=== PATIENT | female | born 1955 | race Caucasian/White ===

== ENCOUNTER → 2019-09-07 | Emergency (ER) | payer MEDICAID, OTHER ==
[~2019-09-07] VITALS: Ht 152.4 cm; Wt 49.9 kg
[~2019-09-07] MED LIST: ALBUTEROL SULF 2.5 MG/0.5ML(0.5%) NEB SOLN NEB ONE; Acetam/CODEINE 120mg/12mg per 5mL UD PO ONE; IPRATROPIUM BROM 0.5 MG/2.5ML INH SOL NEB ONE; ONDANSETRON HCL 4 MG/2 ML VIAL IM ONE; cefTRIAXone SOD 1,000 MG VL IM ONE; methylPREDNISolone SOD SUCC 125 MG/2 ML VL IM ONE
[2019-09-07 20:37] VITALS: BP 132/63
== END | disposition home or self-care (01) ==
LOC: ER 20:21
DX: B34.9 Viral infection, unspecified (principal); J40 Bronchitis, not specified as acute or chronic
CPT/HCPCS: 71046; 94640; 96372; 99284; J0696; J2405; J2930; J7611; J7644

== ENCOUNTER 2019-10-14 14:29 | Emergency (ER) | payer MEDICAID ==
[~2019-10-14] VITALS: Ht 152.4 cm; Wt 56.7 kg
[2019-10-14 15:51] VITALS: BP 128/72
== END 2019-10-14 15:53 | disposition home or self-care (01) ==
LOC: ER 14:29
DX: J01.00 Acute maxillary sinusitis, unspecified (principal); F17.210 Nicotine dependence, cigarettes, uncomplicated
CPT/HCPCS: 71046

== ENCOUNTER 2021-01-19 17:30 | Emergency (ER) | payer MEDICARE, MEDICAID ==
[~2021-01-19] VITALS: Ht 152.4 cm; Wt 53.5 kg
[2021-01-19 21:39] LABS: Basophils # (auto) 0.1 10 ^3/uL (0-0.2); Basophils % (auto) 1.7 % (0.0-2.0); Eosinophils # (auto) 0.1 10 ^3/uL (0-0.8); Eosinophils % (auto) 2.2 % (0.0-7.0); Hematocrit 37.7 % (36.0-46.0); Lymphocytes # (auto) 2.1 10 ^3/uL (0.4-5.4); Lymphocytes % (auto) 32.1 % (10.0-50.0); Mean Corpuscular Hemoglobin 29.5 pg (28.0-32.0); Mean Corpuscular Hgb Conc. 34.6 g/dL (32.0-36.0); Mean Corpuscular Volume 85.4 fL (80.0-100.0); Monocytes # (auto) 0.4 10 ^3/uL (0-1.3); Neutrophils # (auto) 3.9 10 ^3/uL (1.6-8.6); Platelet Count (auto) 372 10^3/uL (140-450); Red Blood Cells 4.41 10^6/uL (4.0-5.20); Red Cell Distribution Width 13.6 % (11.8-14.3); White Blood Cell 6.7 10^3/uL (4.4-10.8)
[2021-01-19 21:54] LABS: Alanine Aminotransferase 32 U/L (13-56); Albumin 3.9 g/dL (3.4-5.0); Anion Gap 5 (5-15); Aspartate Aminotransferase 15 U/L (15-37); BUN/Creatinine Ratio 25.5; Blood Urea Nitrogen 12 mg/dL (7-18); Calcium 8.7 mg/dL (8.5-10.1); Carbon Dioxide 26 mmol/L (21-32); Chloride 109 mmol/L (98-107); GFR African American 171 mL/min; GFR Non-African American 141 mL/min; Glucose 111 mg/dL (74-106); INR 0.92 (0.9-1.15); Potassium 3.6 mmol/L (3.5-5.1); Sodium 140 mmol/L (136-145)
[2021-01-19 21:59] LABS: Alkaline Phosphatase 121 U/L (45-117); Bilirubin, Total 0.2 mg/dL (0.2-1.0)
[2021-01-20 00:40] VITALS: BP 120/69
== END 2021-01-20 02:43 | disposition home or self-care (01) ==
LOC: ER 17:35
DX: J06.9 Acute upper respiratory infection, unspecified (principal); R07.89 Other chest pain; Z20.822 Contact with and (suspected) exposure to COVID-19; Z90.49 Acquired absence of other specified parts of digestive tract; Z77.22 Contact with and (suspected) exposure to environmental tobacco smoke (acute) (chronic)
CPT/HCPCS: 36415; 71046; 80053; 82728; 83605; 83615; 83880; 84484; 85025; 85049; 85379; 85610; 87426; 93005

== ENCOUNTER 2022-07-31 18:32 | Emergency (ER) | payer OTHER, MEDICAID ==
[~2022-07-31] VITALS: Ht 149.9 cm; Wt 68.0 kg
[~2022-07-31 18:32] MED LIST changes: +ALBU0.084 NEB; -ALBUTEROL SULF 2.5 MG/0.5ML(0.5%) NEB SOLN NEB ONE; +AZIT250T8 PO; -Acetam/CODEINE 120mg/12mg per 5mL UD PO ONE; +DEXA6TAB6 PO; -IPRATROPIUM BROM 0.5 MG/2.5ML INH SOL NEB ONE; -ONDANSETRON HCL 4 MG/2 ML VIAL IM ONE; -cefTRIAXone SOD 1,000 MG VL IM ONE; -methylPREDNISolone SOD SUCC 125 MG/2 ML VL IM ONE
[2022-07-31 18:46] VITALS: BP 130/64
[2022-07-31 19:15] LABS: Basophils # (auto) 0.1 10 ^3/uL (0-0.2); Basophils % (auto) 1.7 % (0.0-2.0); Eosinophils # (auto) 0.1 10 ^3/uL (0-0.8); Eosinophils % (auto) 2.4 % (0.0-7.0); Hematocrit 36.4 % (36.0-46.0); Lymphocytes # (auto) 1.6 10 ^3/uL (0.4-5.4); Lymphocytes % (auto) 27.2 % (10.0-50.0); Mean Corpuscular Hemoglobin 28.6 pg (28.0-32.0); Mean Corpuscular Volume 86.8 fL (80.0-100.0); Monocytes # (auto) 0.6 10 ^3/uL (0-1.3); Monocytes % (auto) 9.2 % (0.0-12.0); Neutrophils # (auto) 3.6 10 ^3/uL (1.6-8.6); Neutrophils % (auto) 59.5 % (37.0-80.0); Nucleated Red Blood Cells % 0.2 %
[2022-07-31 19:40] LABS: Albumin 3.5 g/dL (3.4-5.0); Calcium 8.6 mg/dL (8.5-10.1); Potassium 4.4 mmol/L (3.5-5.1)
[2022-07-31 19:43] LABS: Bilirubin, Total 0.3 mg/dL (0.2-1.0); Total Protein 6.7 g/dL (6.4-8.2)
[2022-07-31] MEDS ORDERED: KETOROLAC TROMETH 60MG/2ML VIAL IM ONE (20:15)
[2022-07-31] MEDS ORDERED: HYDROcodone-ACET 10/325MG TAB PO ONE (20:15)
[2022-07-31] MEDS ORDERED: LIDOCAINE 5% TOPICAL PATCH TOP ONE (20:15)
[2022-07-31] MEDS ORDERED: IOHEXOL 350 MG/ML 100ML IJ ONE (21:16)
[2022-08-01] MEDS ORDERED: ACET-1079 PO (00:06)
== END 2022-08-01 00:39 | disposition home or self-care (01) ==
LOC: ER 18:36
DX: R07.89 Other chest pain (principal); Z90.49 Acquired absence of other specified parts of digestive tract; Z79.2 Long term (current) use of antibiotics; Z79.899 Other long term (current) drug therapy
CPT/HCPCS: 36415; 71045; 71275; 80053; 84484; 85025; 85379; 93005; 96372; 99285; J1885; Q9967